=== PATIENT | male | born 1975 | race African-American/Black ===

== ENCOUNTER 2016-12-21 04:48 | Emergency (ER) | payer SELFPAY ==
[~2016-12-21] VITALS: Ht 180.3 cm; Wt 90.0 kg
[2016-12-21] MEDS ORDERED: MORPHINE SULFATE 4 MG/ML, 1ML IVPush PRN (05:00)
[2016-12-21] MEDS ORDERED: ONDANSETRON 2MG/ML, 2ML IVPush ONE (05:00)
[2016-12-21] MEDS ORDERED: SODIUM CHLORIDE 0.9% 1,000ML IVBOLUS ONE (05:00)
[2016-12-21] MEDS ORDERED: IBUPROFEN 200 MG TABLET ONE (05:22)
[2016-12-21] MEDS ORDERED: IBUPROFEN 200 MG TABLET PO ONE (05:30)
[2016-12-21 05:50] VITALS: BP 112/71
[2016-12-21] MEDS ORDERED: PLEASE ENTER ALLERGIES MC SCH ×2 (06:00)
== END 2016-12-21 06:09 | disposition home or self-care (01) ==
LOC: ED 05:38
DX: M54.6 Pain in thoracic spine (principal); Z59.0 Homelessness
CPT/HCPCS: 99283